=== PATIENT | male | born 1985 | race Caucasian/White ===

== ENCOUNTER 2019-07-31 13:24 | Inpatient (IN) | payer OTHER ==
[~2019-07-31] VITALS: Ht 180.3 cm; Wt 76.2 kg
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
[2019-07-31] MEDS ORDERED: KETOROLAC 30 MG/ML VIAL. IM STA (13:59)
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
[2019-07-31] MEDS ORDERED: MORPHINE SULFATE 4 MG/ML VIAL. IV ONE (15:00)
[2019-07-31] MEDS ORDERED: ONDANSETRON PF 4 MG/2 ML VIAL. IV PRN (15:00)
[2019-07-31 15:12] LABS: BASO % 0 % (0-3); EOS % 0 % (0-3); HEMATOCRIT 48.5 % (39.0-53.0); HEMOGLOBIN 16.6 g/dL (13.0-17.5); LYMPH # 0.9 x10^3/uL (1.0-4.8); LYMPH % 9 % (24-48); MEAN CORPUSCULAR HEMOGLOBIN 30 pg (25-35); MEAN CORPUSCULAR HGB CONC 34 g/dL (31-37); MEAN CORPUSCULAR VOLUME 87 fL (79-100); MONO # 0.7 x10^3/uL (0.0-1.1); MONO % 7 % (0-9); NEUT # 7.9 x10^3/uL (1.8-7.7); NEUT % 83 % (31-73); PLATELET COUNT 124 x10^3/uL (140-400); RED BLOOD COUNT 5.58 x10^6/uL (4.30-5.70); RED CELL DISTRIBUTION WIDTH 13.4 % (11.5-14.5); WHITE BLOOD COUNT 9.5 x10^3/uL (4.0-11.0)
[2019-07-31 15:25] LABS: CALCIUM 9.4 mg/dL (8.5-10.1); CREATININE 0.8 mg/dL (0.7-1.3)
[2019-07-31 15:29] LABS: PROTHROMBIN TIME PATIENT 13.4 SEC (11.7-14.0)
[2019-07-31 15:31] LABS: ALBUMIN 4.4 g/dL (3.4-5.0); ALBUMIN/GLOBULIN RATIO 1.3 (1.0-1.7); TOTAL BILIRUBIN 0.8 mg/dL (0.2-1.0); TOTAL PROTEIN 7.8 g/dL (6.4-8.2)
--- NOTE | 2019-07-31 15:44 | RAD ---
Examination: PORTABLE CHEST 1V History: Post chest tube Comparison/Correlation: 07/31/2019 portable chest x-ray exam Findings: Portable upright frontal view of chest was obtained. Left-sided chest tube is identified terminating at the lateral left upper thoracic level. Decrease in size of the left-sided pneumothorax is evident. The lung apex currently is seen just below the level of the left posterior third rib shadow. Right lung field is clear. Heart size and pulmonary vasculature are normal. Impression: Decreased left-sided pneumothorax following chest tube placement. Electronically signed by: Pool Mills MD (07/31/2019 3:41 PM) [facility]
[2019-07-31 17:09] VITALS: BP 119/62
[2019-07-31] MEDS ORDERED: SERT100T PO (17:10)
[2019-07-31] MEDS ORDERED: DIPH25CA58 PO (17:10)
[2019-07-31] MEDS ORDERED: IV NORMAL SALINE 1000ML BAG 1,000 ML IV ONE (17:30)
[2019-07-31] MEDS: KETOROLAC 30 MG/ML VIAL. IVP PRN (17:46)
[2019-07-31 19:44] VITALS: BP 123/57
--- NOTE | 2019-07-31 20:00 | NUR ---
Report received from previous shift- patient presented from ED with chest tube & Heimlich valve in place. Notified that director of estate consult called and director of estate aware. No current orders for chest tube to suction. Breath sounds are clear/air movement present. Patient denies any discomfort. Charge nurse notified of heimlich valve; education obtained as to one-way function of valve for treatment of pneumothorax.
[2019-07-31] MEDS: diphenhydrAMINE HCL 25 MG CAPSULE PO SCH (21:01)
[2019-07-31] MEDS: ZOLPIDEM 5 MG TABLET. PO PRN (21:02)
[2019-07-31] MEDS: SERTRALINE 50 MG TABLET. PO SCH (21:02)
[2019-07-31] MEDS: oxyCODONE/APAP 5/325 1 TAB TABLET PO PRN (21:04)
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
[2019-07-31 23:36] VITALS: BP 124/58
[2019-08-01 03:06] VITALS: BP 109/53
[2019-08-01] MEDS: oxyCODONE/APAP 5/325 1 TAB TABLET PO PRN ×3 (04:49→20:25)
[2019-08-01] MEDS ORDERED: IV NORMAL SALINE 1000ML BAG 1,000 ML IV ONE (06:00)
[2019-08-01 07:35] VITALS: BP 112/77
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
[2019-08-01] MEDS: KETOROLAC 30 MG/ML VIAL. IVP PRN ×2 (08:53→18:10)
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
--- NOTE | 2019-08-01 09:11 | RAD ---
Exam performed: One view chest. Indication: Pneumothorax Date of Service: 08/01/2019 8:43 AM Comparison: One view chest from 07/31/2019. Single AP upright portable view chest findings: Cardiomediastinal silhouette is within limits of normal. Left-sided chest tube terminates in the left upper chest. No gross pneumothorax is identified. No acute infiltrates or effusion is detected. The bony structures are normal. Impression: No acute cardiopulmonary process is detected. Electronically signed by: Emmy Farah MD (08/01/2019 9:08 AM) [facility]
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
[2019-08-01 11:05] VITALS: BP 113/63
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
[2019-08-01 14:55] VITALS: BP 121/57
[2019-08-01 19:02] VITALS: BP 115/65
[2019-08-01] MEDS: ZOLPIDEM 5 MG TABLET. PO PRN (20:23)
[2019-08-01] MEDS: diphenhydrAMINE HCL 25 MG CAPSULE PO SCH (20:24)
[2019-08-01] MEDS: SERTRALINE 50 MG TABLET. PO SCH (22:45)
[2019-08-01 23:02] VITALS: BP 98/45
[2019-08-02 03:35] VITALS: BP 99/55
[2019-08-02] MEDS: oxyCODONE/APAP 5/325 1 TAB TABLET PO PRN ×4 (06:30→19:32)
--- NOTE | 2019-08-02 06:45 | NUR ---
no output from chest tube this shift. Patient reports slight discomfort- pain medication given at this time.
[2019-08-02 07:00] VITALS: BP 117/42
--- NOTE | 2019-08-02 08:19 | RAD ---
CHEST AP ONLY Clinical History: Follow-up left-sided chest tube Technique: AP view of the chest was obtained at 08/02/2019 7:39 AM. Comparison: August 01, 2019. Findings: The cardiomediastinal silhouette is normal. The pulmonary vasculature is normal. The lungs and pleural margins are clear. There is a small caliber chest tube on the left. Impression: No evidence of an acute cardiopulmonary process. Electronically signed by: Bryce Huang III, MD (08/02/2019 8:16 AM) [facility]
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
--- NOTE | 2019-08-02 08:52 | NUR ---
Pt to water seal with chest tube per [facility], educated on when to call nurse for changes in condition.
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
[2019-08-02 11:00] VITALS: BP 115/60
[2019-08-02 12:27] LABS: BASO # 0.1 x10^3/uL (0.0-0.2); BASO % 1 % (0-3); EOS # 0.2 x10^3/uL (0.0-0.7); EOS % 4 % (0-3); HEMATOCRIT 46.7 % (39.0-53.0); HEMOGLOBIN 16.1 g/dL (13.0-17.5); LYMPH # 1.6 x10^3/uL (1.0-4.8); LYMPH % 27 % (24-48); MEAN CORPUSCULAR HEMOGLOBIN 30 pg (25-35); MEAN CORPUSCULAR HGB CONC 34 g/dL (31-37); MEAN CORPUSCULAR VOLUME 87 fL (79-100); MONO # 0.6 x10^3/uL (0.0-1.1); MONO % 10 % (0-9); NEUT # 3.4 x10^3/uL (1.8-7.7); NEUT % 58 % (31-73); PLATELET COUNT 135 x10^3/uL (140-400); RED BLOOD COUNT 5.35 x10^6/uL (4.30-5.70); RED CELL DISTRIBUTION WIDTH 13.7 % (11.5-14.5); WHITE BLOOD COUNT 5.8 x10^3/uL (4.0-11.0)
[2019-08-02 12:36] LABS: CALCIUM 8.6 mg/dL (8.5-10.1); CREATININE 0.9 mg/dL (0.7-1.3); POTASSIUM 4.2 mmol/L (3.5-5.1)
[2019-08-02 13:15] LABS: BILIRUBIN,URINE NEGATIVE (NEG); CLARITY,URINE CLEAR; COLOR,URINE YELLOW; NITRITE,URINE NEGATIVE (NEG); PH,URINE 6.5; PROTEIN,URINE NEGATIVE (NEG-TRACE); UROBILINOGEN,URINE 0.2 mg/dL (0.2 mg/dL)
[2019-08-02 13:19] LABS: RBC,URINE 0 /HPF (0-2); WBC,URINE 0 /HPF (0-4)
[2019-08-02 13:20] LABS: BACTERIA,URINE 0 /HPF (0-FEW)
[2019-08-02 13:21] LABS: BARBITURATES NEG (NEG); BENZODIAZEPINES NEG (NEG); CANNABINOIDS NEG (NEG); COCAINE NEG (NEG); METHADONE NEG (NEG); OPIATES NEG (NEG); PHENCYCLIDINE NEG (NEG)
[2019-08-02 13:22] LABS: AMPHETAMINE/METHAMPHETAMINE NEG (NEG)
[2019-08-02 15:00] VITALS: BP 124/77
[2019-08-02 19:02] VITALS: BP 124/75
[2019-08-02] MEDS: KETOROLAC 30 MG/ML VIAL. IVP PRN (21:08)
[2019-08-02] MEDS: diphenhydrAMINE HCL 25 MG CAPSULE PO SCH (21:08)
[2019-08-02] MEDS: SERTRALINE 50 MG TABLET. PO SCH (21:08)
[2019-08-02 23:44] VITALS: BP 112/56
[2019-08-03 03:38] VITALS: BP 110/55
[2019-08-03] MEDS: KETOROLAC 30 MG/ML VIAL. IVP PRN (06:59)
[2019-08-03] MEDS: oxyCODONE/APAP 5/325 1 TAB TABLET PO PRN ×5 (06:59→23:19)
[2019-08-03 07:00] VITALS: BP 118/72
--- NOTE | 2019-08-03 07:47 | RAD ---
CHEST AP ONLY History: Pneumothorax Comparison: August 02, 2019. Findings: No definite pneumothorax. Left sided chest tube, unchanged. No consolidation or pleural effusion. Normal heart size. Impression: 1. Unchanged left-sided chest tube. No definite pneumothorax. Electronically signed by: Isaac Davis DO (08/03/2019 7:44 AM) [facility]
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
[2019-08-03 11:00] VITALS: BP 112/64
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
[2019-08-03 15:00] VITALS: BP 125/75
[2019-08-03 19:39] VITALS: BP 120/63
[2019-08-03] MEDS: diphenhydrAMINE HCL 25 MG CAPSULE PO SCH (21:46)
[2019-08-03] MEDS: ZOLPIDEM 5 MG TABLET. PO PRN (21:46)
[2019-08-03] MEDS: SERTRALINE 50 MG TABLET. PO SCH (21:46)
[2019-08-03 23:46] VITALS: BP 111/66
[2019-08-04 03:30] VITALS: BP 124/68
[2019-08-04 07:00] VITALS: BP 118/72
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
--- NOTE | 2019-08-04 10:40 | RAD ---
Examination: PORTABLE CHEST 1V History: Chest tube Comparison/Correlation: 08/03/2019 portable chest x-ray exam Findings: Portable upright frontal view of the chest was obtained. Left-sided chest tube terminating in the lateral apical level is again noted. No pneumothorax identified. No infiltrate. Bony structures are unremarkable. Pulmonary vasculature normal. Impression: No definite or significant pneumothorax seen. No significant change. Electronically signed by: Pool Mills MD (08/04/2019 10:38 AM) [facility]
[2019-08-04 11:00] VITALS: BP 97/60
[2019-08-04] MEDS: oxyCODONE/APAP 5/325 1 TAB TABLET PO PRN ×2 (11:09→15:22)
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
--- NOTE | 2019-08-04 14:16 | NUR ---
attempted to call report x2 to US chelle RN, No answer and message left with no return call at this time. Left information with patient packet to call nurse here for report.
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
== END 2019-08-04 16:30 | disposition home or self-care (01) | DRG 201 ==
LOC: ER 13:24 → EEVIPCON 13:24 → 6 SOUTH 14:44
PROVIDERS: ADMIT Internal Medicine; ATTEND Internal Medicine
PROC: 0W9B30Z Drainage of Left Pleural Cavity with Drainage Device, Percutaneous Approach (ICD-10-PCS; principal; 2019-07-31)
DX: S27.0XXA Traumatic pneumothorax, initial encounter (principal); D69.6 Thrombocytopenia, unspecified; M54.5 Low back pain; F19.10 Other psychoactive substance abuse, uncomplicated; R74.0 Nonspecific elevation of levels of transaminase and lactic acid dehydrogenase [LDH]; Y93.89 Activity, other specified; Y92.89 Other specified places as the place of occurrence of the external cause; Y99.8 Other external cause status; Z87.891 Personal history of nicotine dependence; Y04.0XXA Assault by unarmed brawl or fight, initial encounter
CPT/HCPCS: 36415; 70450; 70486; 71045; 72125; 80048; 80053; 80307; 81001; 82550; 85025; 85610; 85730; 96372; 96374; 96375; J1885; J2270; J2405; J7030; Q0163; 99285-25; G0378